=== PATIENT | male | born 1980 | race African-American/Black ===

== ENCOUNTER 2019-12-14 02:35 | Emergency (ER) | payer SELFPAY ==
[2019-12-14] MEDS ORDERED: Propofol* 100 ML ONE (02:45)
[2019-12-14] MEDS ORDERED: Propofol* 100 ML IV ONE (02:46)
[2019-12-14] MEDS ORDERED: Succinylcholine* 20 MG/ML 10 ML VIAL IV ONE (02:47)
[2019-12-14] MEDS ORDERED: Etomidate* 2 MG/ML 10 ML VIAL IV ONE (02:47)
[2019-12-14] MEDS ORDERED: Midazolam* 1 MG/ML 10 ML VIAL (10 MG) IV SLOW PU ONE ×2 (02:48→03:58)
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
[2019-12-14] MEDS ORDERED: Rocuronium* 10 MG/ML VIAL ONE (03:00)
[2019-12-14 04:24] VITALS: BP 119/76
== END 2019-12-14 04:30 | disposition short-term general hospital (02) ==
LOC: ED 02:35
DX: S31.119A Laceration without foreign body of abdominal wall, unspecified quadrant without penetration into peritoneal cavity, initial encounter (principal); S41.111A Laceration without foreign body of right upper arm, initial encounter; S01.81XA Laceration without foreign body of other part of head, initial encounter; S11.91XA Laceration without foreign body of unspecified part of neck, initial encounter; S31.010A Laceration without foreign body of lower back and pelvis without penetration into retroperitoneum, initial encounter; R41.82 Altered mental status, unspecified; W26.9XXA Contact with unspecified sharp object(s), initial encounter; Y92.511 Restaurant or cafe as the place of occurrence of the external cause
CPT/HCPCS: 31500; 71045; 96374; 96375; 96376; 99285; J0330; J2250; J2704